=== PATIENT | male | born 1985 | race Caucasian/White ===

== ENCOUNTER 2017-05-15 19:59 | Observation (INO) | payer MEDICAID, SELFPAY ==
[2017-05-15 21:26] LABS: BASO # 0.1 10^3/uL (0.0-0.2); BASO % 0.6 % (0.0-1.0); EOS % 0.4 % (0.0-3.0); HEMATOCRIT 38.9 % (42.0-52.0); HEMOGLOBIN 13.9 g/dl (14.0-18.0); IMMATURE GRANULOCYTE % 0.3 % (0-0); LYMPH # 1.5 10^3/uL (1.5-4.5); LYMPH % 15.3 % (24.0-44.0); MEAN CORPUSCULAR HEMOGLOBIN 31.2 pg (27.0-33.0); MEAN CORPUSCULAR HGB CONC 35.7 g/dl (32.0-36.5); MEAN CORPUSCULAR VOLUME 87.2 fl (80.0-96.0); MONO # 0.7 10^3/uL (0.0-0.8); MONO % 7.2 % (0.0-5.0); NEUTROPHILS # 7.7 10^3/uL (1.8-7.7); NEUTROPHILS % 76.2 % (36.0-66.0); PLATELET COUNT, AUTOMATED 184 10^3/uL (150-450); RED BLOOD COUNT 4.46 10^6/uL (4.30-6.10); RED CELL DISTRIBUTION WIDTH 11.9 % (11.5-14.5); WHITE BLOOD COUNT 10.1 10^3/uL (4.0-10.0)
[2017-05-15 22:00] LABS: ERYTHROCYTE SEDIMENTATION RATE 1 mm/hr (0-15)
[2017-05-15 22:16] LABS: ANION GAP 5 MEQ/L (8-16); BLOOD UREA NITROGEN 16 MG/DL (7-18); C REACTIVE PROTEIN QUANTITATIV < 0.30 MG/DL (0.00-0.30); CALCIUM LEVEL 9.4 MG/DL (8.5-10.1); CARBON DIOXIDE LEVEL 32 MEQ/L (21-32); CHLORIDE LEVEL 105 MEQ/L (98-107); CPK CREATINE PHOSPHOKINASE 269 U/L (39-308); CREATININE FOR GFR 0.84 MG/DL (0.70-1.30); FREE T4 1.08 NG/DL (0.76-1.46); GLOMERULAR FILTRATION RATE > 60.0 (>60); GLUCOSE, FASTING 82 MG/DL (70-105); SODIUM LEVEL 142 MEQ/L (136-145); TROPONIN I < 0.02 NG/ML (< 0.10)
[2017-05-15 22:48] LABS: MB/CK RELATIVE INDEX 0.74 (< OR =4)
[2017-05-16] MEDS: ALPRAZolam 0.25 MG TAB PO ×2 (00:15)
[2017-05-16] MEDS ORDERED: ACETAMINOPHEN TAB 650MG DOSE (2X325MG) PO ×2 (00:15)
[2017-05-16] MEDS ORDERED: ONDANSETRON 4MG/2ML VIAL (J2405) IV ×2 (00:15)
[2017-05-16 05:38] LABS: HEMATOCRIT 39.4 % (42.0-52.0); HEMOGLOBIN 13.6 g/dl (14.0-18.0); MEAN CORPUSCULAR HEMOGLOBIN 30.8 pg (27.0-33.0); MEAN CORPUSCULAR HGB CONC 34.5 g/dl (32.0-36.5); MEAN CORPUSCULAR VOLUME 89.1 fl (80.0-96.0); PLATELET COUNT, AUTOMATED 182 10^3/uL (150-450); RED BLOOD COUNT 4.42 10^6/uL (4.30-6.10); RED CELL DISTRIBUTION WIDTH 12.1 % (11.5-14.5); WHITE BLOOD COUNT 8.8 10^3/uL (4.0-10.0)
[2017-05-16 06:10] LABS: ANION GAP 5 MEQ/L (8-16); BLOOD UREA NITROGEN 16 MG/DL (7-18); CALCIUM LEVEL 9.2 MG/DL (8.5-10.1); CARBON DIOXIDE LEVEL 31 MEQ/L (21-32); CHLORIDE LEVEL 106 MEQ/L (98-107); CK-MB VALUE MASS 1.8 NG/ML (0.0-3.6); CPK CREATINE PHOSPHOKINASE 209 U/L (39-308); CREATININE FOR GFR 0.84 MG/DL (0.70-1.30); GLOMERULAR FILTRATION RATE > 60.0 (>60); GLUCOSE, FASTING 104 MG/DL (70-105); MB/CK RELATIVE INDEX 0.86 (< OR =4); POTASSIUM SERUM 4.2 MEQ/L (3.5-5.1); SODIUM LEVEL 142 MEQ/L (136-145); TROPONIN I < 0.02 NG/ML (< 0.10)
[2017-05-16] MEDS: HumaLOG INSULIN (NovoLOG) PER UNIT SC ×2 (07:20)
[2017-05-16] MEDS: INFLUENZA QUADRIVALENT PF VACCINE 0.5ML SYRINGE (90686) IM ×2 (08:41)
[2017-05-16] MEDS: ENOXAPARIN 40 MG/0.4 ML SYRINGE (J1650) SC ×2 (08:43)
== END 2017-05-16 14:55 | disposition home or self-care (01) ==
LOC: M ED INP 20:00 → M PCU 05-16 00:58 → M ED 19:59
DX: R00.2 Palpitations (principal); R06.02 Shortness of breath; I45.6 Pre-excitation syndrome; Z72.0 Tobacco use; Z23 Encounter for immunization
CPT/HCPCS: 90471

== ENCOUNTER 2018-06-26 21:52 | Emergency (ER) | payer MEDICAID, OTHER, SELFPAY ==
[~2018-06-26] VITALS: Ht 182.9 cm; Wt 83.2 kg
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
[2018-06-26] MEDS ORDERED: IBUPROFEN 600 MG TAB PO ONE (23:15)
[2018-06-26 23:39] VITALS: BP 126/78
== END 2018-06-26 23:45 | disposition home or self-care (01) ==
LOC: M ED 21:52
DX: S00.83XA Contusion of other part of head, initial encounter (principal); Y04.8XXA Assault by other bodily force, initial encounter; Y92.89 Other specified places as the place of occurrence of the external cause; Z99.0 Dependence on aspirator; I45.6 Pre-excitation syndrome; R51 Headache; Z87.442 Personal history of urinary calculi; Z77.098 Contact with and (suspected) exposure to other hazardous, chiefly nonmedicinal, chemicals

== ENCOUNTER → 2019-08-16 | Outpatient (CLI) | payer BC | LOC: M LABSMTC 10:36 | PROVIDERS: ATTEND Family Medicine | DX: Z11.59 Encounter for screening for other viral diseases (principal); Z20.818 Contact with and (suspected) exposure to other bacterial communicable diseases ==

== ENCOUNTER 2021-11-10 17:20 | Emergency (ER) | payer BC, OTHER ==
[~2021-11-10] VITALS: Ht 182.9 cm; Wt 107.3 kg
[2021-11-10] MEDS ORDERED: CYCL-707 PO (20:49)
[2021-11-10 20:54] VITALS: BP 134/85
[2021-11-10] MEDS ORDERED: CYCLOBENZAPRINE 10MG TABLET PO ONE (20:55)
== END 2021-11-10 21:22 | disposition home or self-care (01) ==
LOC: M ED 17:20
DX: K59.00 Constipation, unspecified (principal); K76.0 Fatty (change of) liver, not elsewhere classified; J84.10 Pulmonary fibrosis, unspecified; N20.0 Calculus of kidney; K21.9 Gastro-esophageal reflux disease without esophagitis; F17.290 Nicotine dependence, other tobacco product, uncomplicated; I45.6 Pre-excitation syndrome